=== PATIENT | female | born 1960 | race Native Hawaiian/Other Pacific Islander ===

== ENCOUNTER 2017-10-07 21:11 | Emergency (ER) | payer BC ==
[~2017-10-07] VITALS: Ht 180.3 cm; Wt 102.1 kg
== END 2017-10-07 22:01 | disposition home or self-care (01) ==
LOC: ED 21:11
DX: R51 Headache (principal); R07.0 Pain in throat
CPT/HCPCS: 99281

== ENCOUNTER 2022-08-01 08:22 | Outpatient (CLI) | payer BC | END 2022-08-01 20:10 | disposition home or self-care (01) | LOC: MAMMO 08:22 | PROVIDERS: ATTEND Nurse Practitioner | DX: Z12.31 Encounter for screening mammogram for malignant neoplasm of breast (principal) ==

== ENCOUNTER 2022-09-12 12:49 | Outpatient (CLI) | payer BC | END 2022-09-12 19:02 | disposition home or self-care (01) | LOC: MAMMO 12:49 | PROVIDERS: ATTEND Nurse Practitioner | DX: R92.8 Other abnormal and inconclusive findings on diagnostic imaging of breast (principal) ==